=== PATIENT | male | born 1995 | race Caucasian/White ===

== ENCOUNTER → 2025-05-02 | Outpatient (CLI) | payer OTHER ==
[~2025-05-02] MED LIST: ACYC-438; ELIQ5TAB; MERC20OR3 PO; TREX5TAB PO
== END ==
LOC: M CARPUL 15:11
PROVIDERS: ATTEND Internal Medicine Cardiovascular Disease
DX: R07.9 Chest pain, unspecified (principal); R06.02 Shortness of breath; E78.1 Pure hyperglyceridemia

== ENCOUNTER → 2025-05-15 | Outpatient (CLI) | payer OTHER | LOC: M CARPUL 13:45 | PROVIDERS: ATTEND Internal Medicine Cardiovascular Disease | DX: R07.9 Chest pain, unspecified (principal); R06.02 Shortness of breath; I34.0 Nonrheumatic mitral (valve) insufficiency; I36.1 Nonrheumatic tricuspid (valve) insufficiency; I37.1 Nonrheumatic pulmonary valve insufficiency ==

== ENCOUNTER → 2025-08-12 | Outpatient (CLI) | payer MEDICARE ==
[~2025-08-12] MED LIST changes: +FAMO1TAB11; -MERC20OR3 PO; +MERC50TA2 PO
== END ==
LOC: M PLARAD 13:26
PROVIDERS: ATTEND Nurse Practitioner Adult Health
DX: C91.00 Acute lymphoblastic leukemia not having achieved remission (principal)
CPT/HCPCS: 78815; A9552